=== PATIENT | female | born 2000 | race Caucasian/White ===

== ENCOUNTER 2020-07-04 07:20 | Emergency (ER) | payer OTHER ==
[~2020-07-04] VITALS: Ht 170.2 cm; Wt 71.9 kg
--- NOTE | 2020-07-04 09:20 | NUR ---
RESPIRATORY TECHNICIAN: PT TO ROOM FROM [facility]
[2020-07-04 09:30] LABS: MICROSCOPIC AUTO
[2020-07-04 09:37] LABS: BASOPHILS % (AUTO) 0 % (0-1); EOSINOPHILS % (AUTO) 0 % (1-7); LYMPHOCYTES % (AUTO) 4 % (22-44); MEAN CORPUSCULAR HEMOGLOBIN 31.9 pg (27.0-34.8); MEAN CORPUSCULAR HGB CONC 33.8 g/dL (32.4-35.8); MEAN PLATELET VOLUME 8.5 fL (7.4-10.4); MONOCYTES % (AUTO) 5 % (2-9); NEUTROPHILS % (AUTO) 91 % (42-75); PLATELET COUNT 238 x10^3/uL (130-400); RED BLOOD COUNT 4.64 x10^6/uL (3.82-5.3); RED CELL DISTRIBUTION WIDTH 12.8 % (9.6-15.2)
--- NOTE | 2020-07-04 09:47 | NUR ---
PATIENT WALKED BACK FROM TRIAGE WITH CHIEF C/O ABD PAIN SINCE 1130 PM LAST NIGHT. PATIENT ALSO STATES SHE HAS VOMITTED 3X AND HAS DIARRHEA. PATIENT RATES HER PAIN LEVEL A 7-9/10. PATIENT DENIES FEVER, NO PAIN WITH URINATION. NO SIGNS OF ACUTE DISTRESS, CONNECTED TO VITALS MACHINE, DAD AT BEDSIDE, CALL LIGHT WITHIN REACH.
[2020-07-04 09:49] LABS: ALBUMIN 4.5 g/dL (3.4-5.0); ANION GAP 6 mmol/L (5-15); CALCIUM 9.4 mg/dL (8.5-10.1); CHLORIDE 109 mmol/L (98-107); CREATININE 0.73 mg/dL (0.55-1.02)
[2020-07-04 09:57] LABS: MD SCAN
--- NOTE | 2020-07-04 10:10 | NUR ---
ERMD AT BEDSIDE TO DISCUSS POC.
[2020-07-04] MEDS ORDERED: MORPHINE SULFATE 4 MG/ML, 1ML ONE ×2 (10:12→15:00)
[2020-07-04] MEDS ORDERED: ONDANSETRON 2MG/ML, 2ML ONE ×3 (10:12→17:17)
[2020-07-04] MEDS: MORPHINE SULFATE 4 MG/ML, 1ML IVPush PRN ×2 (10:24→15:04)
--- NOTE | 2020-07-04 10:25 | NUR ---
20 GAUGE IV STARTED, PATIENT MEDICATED PER eMAR, CALL LIGHT WITHIN REACH, NO FURTHER NEEDS AT THIS TIME.
[2020-07-04] MEDS ORDERED: ONDANSETRON 2MG/ML, 2ML IVPush PRN (10:30)
[2020-07-04] MEDS ORDERED: SODIUM CHLORIDE 0.9% 1,000ML IVBOLUS ONE (10:30)
--- NOTE | 2020-07-04 10:37 | NUR ---
PATIENT TO CT.
[2020-07-04] MEDS ORDERED: OMNIPAQUE 350 MG/ML, 100ML BOTTLE ONE (10:48)
--- NOTE | 2020-07-04 10:53 | NUR ---
PATIENT BACK FROM CT, RESTING IN [facility] ON PHONE, CONNECTED TO VITALS MACHINE, NO SIGNS OF ACUTE DISTRESS, CALL LIGHT WITHIN REACH.
--- NOTE | 2020-07-04 11:17 | NUR ---
SPOKE WITH PATIENT'S MOM AND UPDATED ON POC.
--- NOTE | 2020-07-04 11:21 | NUR ---
PATIENT AMBULATED TO BATHROOM WITH STEADY GAIT.
[2020-07-04] MEDS ORDERED: CEFOTETAN PMX 2GM/50ML 50 ML IVPB ONE (11:30)
--- NOTE | 2020-07-04 12:29 | NUR ---
PATIENT RESTING IN GURNEY, CONNECTED TO VITALS MACHINE, NO SIGNS OF ACUTE DISTRESS, DAD AT BEDSIDE, CALL LIGHT WITHIN REACH. PATIENT STATES HER PAIN AND NAUSEA ARE "BETTER THAN EARLIER." DENIES HAVING NAUSEA OR PAIN AT THIS TIME.
[2020-07-04] MEDS ORDERED: BUPIVACAINE/PF 0.25% ONE (13:24)
--- NOTE | 2020-07-04 13:49 | NUR ---
PATIENT RESTING IN GURNEY, NO SIGNS OF ACUTE DISTRESS, CONNECTED TO VITALS MACHINE. PATIENT DENIES PAIN AND NAUSEA, DAD AT BEDSIDE, CALL LIGHT WITHIN REACH, NO FURTHER NEEDS AT THIS TIME.
--- NOTE | 2020-07-04 14:53 | NUR ---
BREAK RN FOR PRIMARY RN LANETTE. PT REQUESTING ADDITONAL NAUSEA AND PAIN MEDICATION, REPORTS PAIN INCREASED TO 4/10 AND "I THREW UP A LITTLE AGAIN." TO DISCUSS MEDICATION REQUESTS WITH ER. OTHERWISE RESTING COMFORTABLY. VSS. CALL LIGHT IN REACH. FALL PRECAUTIONS IN PLACE. AWAITING SURGERY. MOTHER AT BEDSIDE
[2020-07-04] MEDS ORDERED: SODIUM CHLORIDE 0.9% 1,000 ML IV ONE (15:00)
[2020-07-04] MEDS ORDERED: ONDANSETRON 2MG/ML, 2ML IVPush ONE (15:00)
--- NOTE | 2020-07-04 15:04 | NUR ---
DISCUSSED NAUSEA AND PAIN WITH DR. MENDEZ. NEW ORDERS RECEIVED. PT MEDICATED NOTED PER MD IN [facility] FOR 4/10 ABD PAIN. CALL LIGHT IN REACH. FALL PRECAUTIONS IN PLACE. IVF INFUSING PER ORDER
--- NOTE | 2020-07-04 15:04 | NUR ---
REPORT CALLED TO PRE-OP RN.
[2020-07-04 15:11] VITALS: BP 113/63
[2020-07-04] MEDS ORDERED: CHLORHEXIDINE 15 ML UDC ONE (15:23)
[2020-07-04] MEDS ORDERED: CHLORHEXIDINE 15 ML UDC MM ONE (15:30)
[2020-07-04] MEDS ORDERED: LACTATED RINGERS 1,000 ML IV SCH (15:30)
[2020-07-04] MEDS ORDERED: FENTANYL PF 100 MCG/2ML ONE (16:51)
[2020-07-04] MEDS ORDERED: MIDAZOLAM 1 MG/ML, 2ML ONE (16:51)
[2020-07-04] MEDS ORDERED: SUGAMMADEX 200 MG/2 ML IVPush ONE (16:54)
[2020-07-04] MEDS ORDERED: KETOROLAC 30 MG/1 ML ONE (16:54)
[2020-07-04] MEDS ORDERED: DEXAMETHASONE 4 MG/ML, 1ML ONE (17:17)
[2020-07-04] MEDS ORDERED: CEFAZOLIN 1,000 MG ONE (17:17)
[2020-07-04] MEDS ORDERED: PROPOFOL 10 MG/ML, 20ML ONE (17:17)
[2020-07-05] MEDS ORDERED: ONDANSETRON 2MG/ML, 2ML ONE (13:54)
[2020-07-05] MEDS ORDERED: MORPHINE SULFATE 4 MG/ML, 1ML ONE (13:54)
[2020-07-05] MEDS ORDERED: HYDROmorphone 1 MG/ML, 1ML INJ ONE (14:12)
== END 2020-07-04 18:47 | disposition home or self-care (01) ==
LOC: ED 09:55 → EDIP 11:02 → UNDOADMOB 11:02
DX: K35.80 Unspecified acute appendicitis (principal); N83.292 Other ovarian cyst, left side; Z11.59 Encounter for screening for other viral diseases
CPT/HCPCS: 36415; 44970; 74177; 80048; 81001; 82040; 84703; 85025; 87635; 88304; 96361; 96365; 96375; 96376; 99285; C1729; C1894; J0690; J1100; J2250; J2270; J2405; J2704; J3010; J7030; Q9967; J1885

== ENCOUNTER 2020-10-24 06:32 | Day surgery (SDC) | payer OTHER ==
[2020-10-21 16:41] LABS: BASOPHILS % (AUTO) 0 % (0-1); EOSINOPHILS % (AUTO) 1 % (1-7); LYMPHOCYTES % (AUTO) 17 % (22-44); MEAN CORPUSCULAR HEMOGLOBIN 32.4 pg (27.0-34.8); MEAN CORPUSCULAR HGB CONC 34.5 g/dL (32.4-35.8); MONOCYTES % (AUTO) 12 % (2-9); NEUTROPHILS % (AUTO) 70 % (42-75); PLATELET COUNT 205 x10^3/uL (130-400); RED BLOOD COUNT 4.58 x10^6/uL (3.82-5.3); RED CELL DISTRIBUTION WIDTH 12.7 % (9.6-15.2)
[2020-10-21 16:42] LABS: MD NO
[2020-10-21 16:49] LABS: ALANINE AMINOTRANSFERASE 32 U/L (12-78); ALBUMIN 4.2 g/dL (3.4-5.0); ANION GAP 7 mmol/L (5-15); CHLORIDE 108 mmol/L (98-107); CREATININE 0.76 mg/dL (0.55-1.02)
[2020-10-21 16:53] LABS: ALKALINE PHOSPHATASE 56 U/L (45-117); BILIRUBIN,TOTAL 0.4 mg/dL (0.2-1.0); TOTAL PROTEIN 7.6 g/dL (6.4-8.2)
[2020-10-21 17:09] LABS: MICROSCOPIC NOT IND
[~2020-10-24] VITALS: Ht 170.2 cm; Wt 72.0 kg
[~2020-10-24 06:32] MED LIST: NORG1TAB65 PO
[2020-10-24] MEDS ORDERED: CHLORHEXIDINE 15 ML UDC MM STA (06:51)
[2020-10-24] MEDS ORDERED: LACTATED RINGERS 1,000 ML IV SCH (07:00)
[2020-10-24 07:02] VITALS: BP 113/72
[2020-10-24] MEDS ORDERED: FENTANYL PF 250 MCG/5ML ONE ×2 (07:45→09:16)
[2020-10-24] MEDS ORDERED: MIDAZOLAM 1 MG/ML, 2ML ONE (07:45)
[2020-10-24] MEDS ORDERED: FLUORESCEIN SODIUM 500 MG/5 ML ONE (08:01)
[2020-10-24] MEDS ORDERED: FUROSEMIDE 20 MG/2 ML ONE (08:01)
[2020-10-24] MEDS ORDERED: METHYLENE BLUE 50 MG/10 ML AMP ONE (08:01)
[2020-10-24] MEDS ORDERED: LIDOCAINE/PF 1%, 30ML ONE (08:02)
[2020-10-24] MEDS ORDERED: EPINEPHRINE 1 MG/ML, 1ML ONE (08:02)
[2020-10-24] MEDS ORDERED: PROPOFOL 50 ML ONE ×2 (08:32→09:08)
[2020-10-24] MEDS ORDERED: HEPARIN 1,000 UNITS/ML, 10ML ONE (08:57)
[2020-10-24] MEDS ORDERED: OXYcodone 5 MG/5 ML ORAL.SOL UDC PO PRN (09:00)
[2020-10-24] MEDS ORDERED: FENTANYL PF 100 MCG/2ML IV PRN (09:00)
[2020-10-24] MEDS ORDERED: ACETAMINOPHEN 325 MG TABLET PO PRN (09:00)
[2020-10-24] MEDS ORDERED: hydrALAzine 20 MG/ML, 1ML IV PRN (09:00)
[2020-10-24] MEDS ORDERED: LORazepam 2 MG/ML, 1ML IVPush PRN (09:00)
[2020-10-24] MEDS ORDERED: MEPERIDINE/PF 25MG/0.5ML IVPush PRN (09:00)
[2020-10-24] MEDS ORDERED: LABETALOL 5MG/ML, 20ML IV PRN (09:00)
[2020-10-24] MEDS ORDERED: PROMETHAZINE 25 MG/ML, 1ML IVPush PRN (09:00)
[2020-10-24] MEDS ORDERED: EPHEDRINE 50 MG/ML, 1ML IVPush PRN (09:00)
[2020-10-24] MEDS ORDERED: HYDROmorphone 1 MG/ML, 1ML INJ IVPush PRN (09:00)
[2020-10-24] MEDS ORDERED: ONDANSETRON 2MG/ML, 2ML IVPush PRN (09:00)
[2020-10-24] MEDS ORDERED: METHOCARBAMOL 1,000 MG in DEXTROSE 5% 100 ML IV ONE (09:00)
[2020-10-24] MEDS ORDERED: CEFAZOLIN 1,000 MG ONE (09:29)
[2020-10-24] MEDS ORDERED: PROPOFOL 10 MG/ML, 20ML ONE (09:29)
[2020-10-24] MEDS ORDERED: GLYCOPYRROLATE 0.2MG/1ML, 5ML ONE (09:29)
[2020-10-24] MEDS ORDERED: ROCURONIUM 10MG/ML,5ML ONE (09:29)
[2020-10-24] MEDS ORDERED: SUCCINYLCHOLINE 20 MG/ML, 10ML ONE (09:29)
[2020-10-24] MEDS ORDERED: NEOSTIGMINE 1 MG/ML, 10ML ONE (09:29)
[2020-10-24] MEDS ORDERED: ONDANSETRON 2MG/ML, 2ML ONE (09:29)
== END 2020-10-24 14:40 | disposition home or self-care (01) ==
LOC: OUT 06:32
PROVIDERS: ATTEND Obstetrics & Gynecology Gynecology
DX: N83.8 Other noninflammatory disorders of ovary, fallopian tube and broad ligament (principal); D27.1 Benign neoplasm of left ovary; Z20.822 Contact with and (suspected) exposure to COVID-19; Z79.3 Long term (current) use of hormonal contraceptives; Z79.899 Other long term (current) drug therapy; Z90.49 Acquired absence of other specified parts of digestive tract
CPT/HCPCS: 36415; 58662; 80053; 81003; 84703; 85025; 88112; 88305; J0171; J0330; J0690; J1644; J2250; J2405; J2704; J2710; J3010; J7120; U0003; Q9968; J1940